=== PATIENT | male | born 1950 | race Caucasian/White ===

== ENCOUNTER → 2016-11-09 | Outpatient (REF) | payer BC, OTHER ==
[2016-11-09 10:25] LABS: BASOPHILS % (AUTO) 1 % (0-2); EOSINOPHILS # (AUTO) 0.5 10^3uL; EOSINOPHILS % (AUTO) 5 % (0-4); LYMPHOCYTES # (AUTO) 1.9 X10^3; MEAN CORPUSCULAR HEMOGLOBIN 30.6 PG (26.0-34.0); MEAN CORPUSCULAR VOLUME 90 FL (80-100); MEAN PLATELET VOLUME 10.7 FL (6.0-9.5); MONOCYTES # (AUTO) 0.7 X10^3; MONOCYTES % (AUTO) 8 % (3-11); NEUTROPHILS # (AUTO) 6.1 X10^3; NEUTROPHILS % (AUTO) 66 % (51-67); PLATELET COUNT 169 10^3uL (150-450); WHITE BLOOD COUNT 9.27 10^3uL (4.0-11.0)
[2016-11-09 10:47] LABS: CALCULATED IONIZED CALCIUM 4.1 mg/dL (3.8-4.6); TOTAL PROTEIN 7.3 g/dL (6.4-8.5)
== END ==
LOC: LAB 09:35
PROVIDERS: ATTEND Family Medicine
DX: E11.9 Type 2 diabetes mellitus without complications (principal); I10 Essential (primary) hypertension; I70.8 Atherosclerosis of other arteries; E78.4 Other hyperlipidemia; E03.8 Other specified hypothyroidism
CPT/HCPCS: 80053; 80061; 83036; 84443; 85025

== ENCOUNTER → 2016-12-22 | Outpatient (CLI) | payer BC ==
[2016-12-22 14:43] LABS: ANION GAP 12.4 MEQ/L (3-15)
== END ==
LOC: LAB 13:55
PROVIDERS: ATTEND Family Medicine
DX: E11.9 Type 2 diabetes mellitus without complications (principal); R60.0 Localized edema
CPT/HCPCS: 36415; 80048

== ENCOUNTER → 2017-02-09 | Outpatient (REF) | payer BC ==
[~2017-02-09] MED LIST: AC325T PO; AMOX1TAB12 PO; BMT1T PO; BUME1TAB4 PO; CARV25TA30 PO; CPR500T PO; DOCU100C8 PO; FURO80TA62 PO; GBPN100C PO; GFN600TCR PO; GLIM1TAB PO; GLYB5TAB6 PO; HYDR-3702 PO; HYDR-3811 PO; LISI1TAB8 PO; LSNP20T PO; LVT.15T PO; METF-473 PO; METF500T4 PO; MTL2.5T PO; OXYGEN; POLY17PO2 PO; POTA20TA15 PO; PRV20T PO; SAXA2.5T PO; SCR1T1 PO; SMV20T PO; SPRN25T PO; TRS20T PO
[2017-02-09 10:07] LABS: ANION GAP 13.9 MEQ/L (3-15)
== END ==
LOC: LAB 09:48
PROVIDERS: ATTEND Family Medicine
DX: E11.9 Type 2 diabetes mellitus without complications (principal); I10 Essential (primary) hypertension; E03.8 Other specified hypothyroidism; R60.0 Localized edema
CPT/HCPCS: 80048; 83036; 84443

== ENCOUNTER → 2017-02-26 | Outpatient (REF) | payer BC ==
[2017-02-26 11:49] LABS: ANION GAP 11.9 MEQ/L (3-15)
== END ==
LOC: LAB 11:26
PROVIDERS: ATTEND Family Medicine
DX: I10 Essential (primary) hypertension (principal)
CPT/HCPCS: 80048